=== PATIENT | female | born 1990 | race Caucasian/White ===

== ENCOUNTER 2016-08-24 10:52 | Inpatient (IN) | payer OTHER ==
[~2016-08-24] VITALS: Ht 177.8 cm; Wt 105.8 kg
--- NOTE | ~2016-08-24 | RESCARESUM ---
"PATIENT: EDMUND MOLNIA | | [facility] UNIT #: [id number] | [address] AGE/SEX: 26 F : 89 | [address] | [place] [phone] ADMIT/REG DATE: 08/24/16 | ROOM: [facility] LOC: ADTC | ADTC | Summary of Residential Care Primary Counselor: Katie BAER Date of Admission: 08/24/16 Date of Discharge: 09/16/16 Referral Source: [facility] Primary Care Provider Prior to Admission: Self Admitting Diagnosis: 304.40 Stimulant Use Disorder, Severe; 303.90 Alcohol Use Disorder, Severe; 304.30 Cannabis Use Disorder, Severe; 305.10 Tobacco Dependence; Bi-Polar disorder; Exogenous obesity; Dental caries, Increased risk for HIV and Hep C, PER ' H & P. Discharge Diagnosis: Same Goals Achieved: Edmund was able to identify negative consequences of her addiction, by completing the How to Get Started and Step 1 packets. She also wrote and processed feelings letters to family members and worked on grief from a past relationship. She worked on getting to know herself, to raise her self-worth and to gain insight to the disease concept. She was given Relapse Prevention, but was discharged prior to completing. Continued Obstacles to Sobriety/Relapse Issues: Self-will run riot, not following rules and regulations, not dealing with feelings, thinking the rules don't apply to her, not finishing her treatment, not going to sober living, not getting a sponsor, not going to AA/NA meetings, and not learning how to work a strong program of recovery. Family Issues Addressed: She wrote and processed feelings letters to her Mom and Dad, and worked on grief. Her dad has been gone for a few years, so we did process and work thru that. Y Individual Therapy Y Group Therapy Y Educational Series on Substance Abuse Y Parents/Significant Others Attended Family Program N Acute Medical Problems During the Course of Treatment N Transferred to Hospital During the Course of Treatment N Accepting of Substance Abuse Problem Y Non-accepting of Substance Abuse Problem N Required Psychological or Psychiatric Consultation During the Course of Treatment Completed AA Step # 1 During This Level of Care Significant Incidences During Treatment: Edmund had been placed on a contract for writing notes to a male peer, and she was not to hang around him. She did listen until her last couple days, when she was observed walking with him and sitting with him. She also had been found in bed several times, missed programming, was found sleeping in one of the group rooms, so heard if she is unable to stay up and follow all programming, she would have to PATIENT: EDMUND MOLINA | | [facility] UNIT #: [id number] | [address] [place] [address] AGE/SEX: 26 F : [birth year] | [address] | [place] [address] ADMIT/REG DATE: 08/24/16 | ROOM: [facility] LOC: ADTC | [facility] | Summary of Residential Care discharge and return when she's able to stay awake. Her visiting and phone privileges were taken from her but when she was found missing morning programming and sleeping, she heard she needs to leave. Reason For Discharge: N Completed Residential TX Goals and Ready For Next Level of Care NN Left Tx Against Medical Advice/Treatment Goals Not Complete N Completed Residential Tx Goals But Refusing Continuing Care Recommendations Y Discharged Due to Noncompliance/Treatment Goals not Completed N Discharged Earlier Than Planned Due to: Continuing Care Plan/Recommendations: N Intensive Partial Care Y Sponsor N Partial Care Y AA Meetings/NA Meetings N Outpatient Y Co-dependency Services N Therapeutic Community Y [address] House N Mental Health Therapy N Marriage Counseling Y Other Specific Continuing Care Plan: It is recommended that Edmund finish her treatment, follow up with a [facility]dc house or other sober living, get into aftercare and attend 3-5 AA/NA meetings per week, get and call a sponsor on a regular basis and learn how to work a strong program of recovery. PRIMARY COUNSELOR: BUFFY Patricio"
--- NOTE | ~2016-08-24 | TXPLANREV ---
"PATIENT: EDMUND MOLINA | | [facility] UNIT #: [id number] | [address] AGE/SEX: 26 F : 89 | [address] | [place] [phone] ADMIT/REG DATE: 08/24/16 | [facility] | Treatment Plan/Staffing Review Date: 09/14/16 Treatment plan was reviewed and determined appropriate as written: Yes Treatment plan was reviewed and the following changes/addition/deletions are necessary: Client is to continue working on treatment plan assignments. She will begin working on relapse prevention. Discharge plans were reviewed and determined appropriate as previously documented: No Discharge plans were reviewed and determined to be as follows: Client has to turn herself into senior living on 10/01, for 30 days. Following senior living, she is hoping to get into the [facility]. She did a screening, and hasn't heard if she's accepted and placed on the wait list. She will also be recommended to attend AA/NA meetings, as well as to get and call a sponsor on a regular basis. Other pertinent issues discussed during this staffing review include: None at this time. Staff Present: Skye Shaikh PRIMARY COUNSELOR: BUFFY Patricio Client Signature Counselor Signature Date Time "
--- NOTE | ~2016-08-24 | INDIVTXPLN ---
"PATIENT: EDMUND MOLINA | | [facility] UNIT #: [id number] | [address] AGE/SEX: 26 F : 89 | [address] | [place] [phone] ADMIT/REG DATE: 08/24/16 | ROOM: [facility] LOC: ADTC | ADTC | Individualized Treatment Plan Date: 09/14/16 Problem Statement/Issue Identified: Client needs to identify relapse warning signs and develop a plan to deal with them as they arise. Goal: Client will learn to identify relapse triggers and make a plan of how to avoid them. Objectives/Activities to achieve goal: 1. Client is to complete the Relapse Prevention packet and process it with counselor. Due Date:10/01/16 Complete: Incomplete: Client signature Date Counselor signature Date Outcome/Measurement of Progress Towards Goal: Counselor's signature Date "
--- NOTE | ~2016-08-24 | INDIVTXPLN ---
"PATIENT: EDMUND MOLINA | | [facility] UNIT #: [id number] | [address] AGE/SEX: 26 F : 89 | [address] | [place] [phone] ADMIT/REG DATE: 08/24/16 | ROOM: [facility] LOC: ADTC | ADTC | Individualized Treatment Plan Date: 08/31/16 Problem Statement/Issue Identified: Client has learned to deny or stuff feelings, including grief; needs to learn to identify and process feelings in a clean/sober manner. Goal: Client will learn how to identify and express feelings, including grief, in a healthy, clean/sober manner. Objectives/Activities to achieve goal: 1. Client is to complete the Grief packet on her exboyfriend, and process it with counselor. Due Date:09/06/16 Complete: Incomplete: 2. Client is to write her mother a feelings letter, and process it with counselor and in family group, if able. Due Date:09/06/16 Complete: Incomplete: 3. Client is to complete the Grief packet on her father, which includes writing him a goodbye letter, and process it with counselor. Due Date:09/06/16 Complete: Incomplete: Client signature Date Counselor signature Date Outcome/Measurement of Progress Towards Goal: Counselor's signature Date "
--- NOTE | ~2016-08-24 | TXPLANREV ---
"PATIENT: EDMUND MOLINA | | [facility] UNIT #: [id number] | [address] AGE/SEX: 26 F : 89 | [address] | [place] [phone] ADMIT/REG DATE: 08/24/16 | [facility] | Treatment Plan/Staffing Review Date: 09/07/16 Treatment plan was reviewed and determined appropriate as written: Yes Treatment plan was reviewed and the following changes/addition/deletions are necessary: Client is to continue working on treatment plan assignments. She is finishing up with feelings letters and self-esteem and will begin working on love addiction. Discharge plans were reviewed and determined appropriate as previously documented: Yes Discharge plans were reviewed and determined to be as follows: Client has to turn herself into halfway on 10/01, and when she serves her 30 day sentence, hopes to be able to get into the [facility]. We will do paperwork and set up screening prior to her discharge. She will also be recommended to attend AA/NA meetings, as well as to get and call a sponsor on a regular basis, and attend an aftercare program. Other pertinent issues discussed during this staffing review include: None at this time. Staff Present: Skye Shaikh PRIMARY COUNSELOR: BUFFY Patricio Client Signature Counselor Signature Date Time "
--- NOTE | ~2016-08-24 | INDIVTXPLN ---
"PATIENT: EDMUND MOLINA | | [facility] UNIT #: [id number] | [address] AGE/SEX: 26 F : 89 | [address] | [place] [phone] ADMIT/REG DATE: 08/24/16 | ROOM: [facility] LOC: ADTC | ADTC | Individualized Treatment Plan Date: 08/31/16 Problem Statement/Issue Identified: Client continues to use alcohol &/or drugs despite ongoing negative consequences, and she did not know anyone to reach out to, so instead, she continued to drink and use. Goal: Client will learn how to identify negative consequences of her addiction, attend AA/NA meetings and meet women in recovery. Objectives/Activities to achieve goal: 1. Client is to complete the How to Get Started packet, process it with counselor and selected pages in group. Due Date:09/01/16 Complete: Incomplete: 2. Client is to complete Step 1, process it with counselor and selected pages in group. Due Date:09/04/16 Complete: Incomplete: 3. Client is to attend AA/NA meetings, ask for and get at least 5 names and numbers of women in recovery and share that list with counselor. Due Date:Ongoing Complete: Incomplete: Client signature Date Counselor signature Date Outcome/Measurement of Progress Towards Goal: Counselor's signature Date "
--- NOTE | ~2016-08-24 | INDIVTXPLN ---
"PATIENT: EDMUND MOLINA | | [facility] UNIT #: [id number] | [address] AGE/SEX: 26 F : 89 | [address] | [place] [phone] ADMIT/REG DATE: 08/24/16 | [facility] | Individualized Treatment Plan Date: 08/31/16 Problem Statement/Issue Identified: Client needs to identify ways to improve self esteem to help maintain manager long term care sobriety from all mood altering substances. Goal: Client will get to know herself better, which will, in turn, help raise her self-worth. Objectives/Activities to achieve goal: 1. Client is to complete the About Me, Finish the Sentences, and I'm Worthwhile, because.... papers and process them with counselor. Due Date:09/08/16 Complete: Incomplete: 2. Client is to complete the Self-Esteem packet and process it with counselor. Due Date:09/08/16 Complete: Incomplete: 3. Client is to complete 1 page a day in the Quiet Moments packet, and process them with counselor. Due Date: Ongoing Complete: Incomplete: Client signature Date Counselor signature Date Outcome/Measurement of Progress Towards Goal: Counselor's signature Date "
--- NOTE | ~2016-08-24 | CLPRLASSUM ---
PATIENT: EDMUND MOLINA | | [facility] UNIT #: [id number] | [address] AGE/SEX: 26 F : 89 | [address] | [place] [phone] ADMIT/REG DATE: 08/24/16 | ROOM: [facility] LOC: ADTC | ADTC | Client Problem List/Assessment Summary Date: 08/31/16 Problems identified by the client: Client advised she is here on her own, however, she also has legal issues she's dealing with. Problems identified by significant others: Same Client's Strengths: Client was unable to recognize any strengths. Problem List: Code: T Client continues to use alcohol &/or drugs despite ongoing negative consequences. Code: T Client does not "reach-out to others for help" and instead resumes using alcohol &/or drugs. Code: T Client has learned to deny or stuff feelings, including grief; needs to learn to identify and process feelings with safe people to acquire the necessary skills to maintain check weigher sobriety. Code: T Client needs to identify ways to improve self esteem to help maintain alf sobriety from all mood altering substances. Code: T Client needs to identify relapse warning signs and develop a plan to deal with them as they arise. Code Roth: T: to be addressed during course of treatment O: problem noted, expected to resolve itself with abstinence--specific tx plan not required R: problem noted, will be referred upon discharge PRIMARY COUNSELOR: BUFFY Patricio
--- NOTE | 2016-08-24 15:38 | NUR ---
Tech Note: Client attended programming on Relapse Prevention and is working on her Getting Started.
--- NOTE | 2016-08-24 16:28 | NUR ---
Relapse Prevention, 07/12 ration, 1.0 hours, Client attended and participated in relapse prevention education which focused on relapse triggers/issues.
--- NOTE | 2016-08-24 22:22 | NUR ---
TECH NOTE: Client attended Alumni meeting and on-site AA meeting. Checked into room by tech and lab came back negative for amphetamines. Was not seen by
--- NOTE | 2016-08-24 22:55 | NUR ---
EDUCATION NOTE: 1HR lecture on Shame given by counselor
--- NOTE | 2016-08-25 04:43 | NUR ---
Bed note: Client was in bed with eyes closed and no distress at all bed checks.
--- NOTE | 2016-08-25 06:31 | NUR ---
ADMISSION NOTE Rights/Responsibilities: Copy given and explained to client. Signed and accepted by client. Client oriented to physical lay out of the ADTC unit, given Big Book and admission packet. A David was assigned. Fawn Client is a 26yr old single female. Brought to tx by [facility] staff where she has been for the past 16 days. Client is homeless. DOC Meth, alcohol, and cannabis. Last used 08/09/16. No allergies, No meds. No family participation in tx. Was searched no contraband. Initial paperwork given and guidelines gone over. Doctor was notified.
--- NOTE | 2016-08-25 08:30 | NUR ---
INITIAL SESSION 1 HR: Clt was oriented to tx plans, schedules and what to expect from tx. She advised she is here on a eh, and when she's done w/ tx, she has to return to skilled nursing in [facility]. She stated her check in date is 09/30, so she'll have a couple days when she's done w/ tx. She was asked if she has any questions and the only one she has is when she can have her anxiety meds back. She heard we like to work on natural ways to reduce anxiety. She stated she can only get calm when she's taking her meds. She heard we will speak to the dr. She is to begin working on initial paperwork.
--- NOTE | 2016-08-25 10:08 | NUR ---
Tech note: Client is working on Getting started and mtg with gaurav.
--- NOTE | 2016-08-25 12:13 | NUR ---
AM GROUP .5 HR: Peers ORIENTED THIS NEW CLIENT TO GROUP GUIDELINES, GOALS AND OBJECTIVES. Client identified drug of choice as meth. She stated that this is her first treatment and that she is from [place]. She related to others who thought others didn't recognize their drug use, but now she realizes that they knew more than she thought. Several clients had assignments to process. This generated a lot of feedback and different individuals sharing from their own experience. Various examples of behaviors and values compromised were addressed with much of the focus on values compromised, how kids become the innocent victims of this disease and how painful but necessary it is to have to look at the reality of those consequences. Client was otherwise attentive.
--- NOTE | 2016-08-25 12:46 | NUR ---
Education note: Client attended speaker Scott Naidu
--- NOTE | 2016-08-25 16:16 | NUR ---
SPIRITUAL EDUCATION 1 HR. Topic today was on how addiction is a disease of body mind and spirit and how the Steps fit in treating the SPIRIT. We also talked about ways to spirituality, payoffs, and how spirituality is related to both addiction and recovery.
--- NOTE | 2016-08-25 18:17 | NUR ---
Education: 1 Hour. Client attended "Boundaries" lecture presented by staff.
--- NOTE | 2016-08-25 22:17 | NUR ---
Tech note : Client played pictionary for rec and attended an onsite NA meeting. SE: Rec.
--- NOTE | 2016-08-26 05:19 | NUR ---
tech note: client was motionless in no distress at all bed checks.
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
--- NOTE | 2016-08-26 09:58 | NUR ---
FAMILY CONTACT: Clt's mom was called and informed of visiting hours, family education and the program. She did not have any questions or concerns at this time.
--- NOTE | 2016-08-26 11:30 | NUR ---
AM GRP 1.5 HRS, Ratio 1:11/ Clt sat mostly quiet, until prompted, then stated she is just feeling sad and not sure what to think about things. SHe misses a man she considered the love of her life, as he had a severe accident resulting in TBI. She heard she can do the grief pkt on him and see if that helps.
--- NOTE | 2016-08-26 15:51 | NUR ---
Tech Note: Client participated in Spiritual Enrichment in the morning and went for an outdoor walk in the afternoon. Client stated that she is working on Step One.
--- NOTE | 2016-08-26 16:00 | NUR ---
step education/1 hr/ Focus was on step 6 and looking at character defects. Each person shared some questions and answers and identified what character defects they are ready to let go of and what ones they are not willing to let go of. This client participated.
--- NOTE | 2016-08-26 16:34 | NUR ---
Education 1 Hour: Client heard a presentaion on "Wellness in Recovery."
--- NOTE | 2016-08-26 23:07 | NUR ---
Tech note: Client worked on craft projects for the [employer] for rec and attended AA meeting SE:rec
--- NOTE | 2016-08-27 00:11 | NUR ---
Education note: Clients watched a movie on "my attitude' by Scooter Avila.
--- NOTE | 2016-08-27 04:54 | NUR ---
Bed note; client was motionlees, with eyes closed at all bed checks.
--- NOTE | 2016-08-27 12:16 | NUR ---
Group 1.5 Hr Ratio 1:12/Topics today were a change plan, resentment packet and a getting started. One new peer was orientated to group rules and goals. Client shared she is just listeniing as she was not sharing in group.
--- NOTE | 2016-08-27 14:03 | NUR ---
PEER REVIEWS 1.25 HRS: Clt participated in peer reviews and took a risk to give open and honest feedback to those receiving a review.
--- NOTE | 2016-08-27 16:27 | NUR ---
Tech Note: Client went with group for outside walk and watched "Marijuana", by John Avila, for education. Clt is working on a Grief packet.
--- NOTE | 2016-08-27 23:49 | NUR ---
Tech Note: Client read guidelines with peers. She watched tv. SE: All Day
--- NOTE | 2016-08-28 05:32 | NUR ---
Bed Note: Client was motionless with eyes closed at all bed checks. Client did however wake up around 0410 and go out to smoke. She was redirected to go back to room and did so with no issues.
--- NOTE | 2016-08-28 15:46 | NUR ---
Tech Note: Client working on a Grieving packet. Client was found in her room sleeping at 0950 hours.
--- NOTE | 2016-08-28 20:32 | NUR ---
Tech Note: Client played a game for rec. They also attended the A.A.Meeting at [facility] and [place]. SE: Client missed the client meeting because she was doing her laundry. She did not realize the client meeting was so early on Saturdays. This is her first weekend in treatment.
--- NOTE | 2016-08-29 05:31 | NUR ---
Bed Note: Client was motionless with eyes closed at all bed checks.
--- NOTE | 2016-08-29 15:31 | NUR ---
Tech Note: Client participated in Big Book Study. Client stated that she is working on, "Grief."
--- NOTE | 2016-08-29 23:34 | NUR ---
Client attended [facility] and helped with community clean. SE: [facility]
--- NOTE | 2016-08-30 05:03 | NUR ---
Bed Note: Client was motionless with eyes closed at all bed checks.
--- NOTE | 2016-08-30 10:11 | NUR ---
Tech note: Client is working on Grief pkt. and missed morning meditation.
--- NOTE | 2016-08-30 10:11 | NUR ---
Client missed morning meditation due to over sleeping.
--- NOTE | 2016-08-30 11:30 | NUR ---
AM GRP 1.5 HRS, Ratio 1:11/ Clt sat mostly quiet thru out grp, and had very little to add to it.
--- NOTE | 2016-08-30 14:37 | NUR ---
Education note: Client attended speaker for education Carroll Raymond
--- NOTE | 2016-08-30 14:55 | NUR ---
IS 1 HR: Clt stated she has several things she needs help with. 1. She continues to have night terrors and doesn't always remember them, but finds her pillows and blankets all in disarray when she wakes up. She is also waking up feeling very tired and groggy, stating she's taking melatonin 3 times a day, so wants to stop taking it for now. She heard she can refuse it. She then stated she is on seroquil, but it does help her get to sleep at night, so heard to fill out a self-care sheet and will staff it with the dr in the morning.
--- NOTE | 2016-08-30 16:00 | NUR ---
RECOVERY 101 1 HR/ Clients all filled out list of 30 consequences from their use to help look at how each addictive chemical they ever used has caused problems and how minimizing can sabotage treatment. Discussed this and also learned about phases of recovery process from Denial to Acceptance & Surrender.
--- NOTE | 2016-08-30 22:42 | NUR ---
TECH NOTE: Client played Catch Phrase in REC, and attended NA meeting. Late to Client meeting SE: REC
--- NOTE | 2016-08-30 23:58 | NUR ---
Education: 1 Hour. Client attended "Adult Children" presentation given by staff.
--- NOTE | 2016-08-31 05:24 | NUR ---
BED NOTE: Client was in bed, motionless with eyes closed all three bed checks.
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
--- NOTE | 2016-08-31 16:28 | NUR ---
Relapse Prevention; 1.0 hours; Client attended and actively participated in relapse prevention which focused on compulsive behaviors and relapse.
--- NOTE | 2016-08-31 16:31 | NUR ---
Tech Note: Client attended speaker meeting, presented by [employer], and Relapse Prevention education. Client is currently working on Feelings Letters.
--- NOTE | 2016-08-31 23:24 | NUR ---
Education note: 1 hour lecture given by counselor on "Self Esteem"
--- NOTE | 2016-08-31 23:37 | NUR ---
Tech note: Client worked on projects for the [employer] for rec and attended AA meeting SEF:
--- NOTE | 2016-09-01 04:13 | NUR ---
BED NOTE: Client was in bed, motionless with eyes closed all three bed checks.
--- NOTE | 2016-09-01 10:55 | NUR ---
Tech note: Client is working on Fl's
--- NOTE | 2016-09-01 12:14 | NUR ---
AM GROUP 9:1/1.5 HR: Client and peers participated as three peers processed issues and assignments. Much of the focus became how to rebuild a healthy and realistic value system after compromised original values to such a degree in active addiction. This client was redirected for nodding off. She did get up and stood behind her chair for a brief period continued to struggle to stay awake. She offered no feedback or personal sharing.
--- NOTE | 2016-09-01 13:15 | NUR ---
Education note: Client attended speaker Everardo for education today.
--- NOTE | 2016-09-01 15:00 | NUR ---
IS 1 HR: Clcourtney was confronted on the notes she has been giving to a male peer. They were found by this counselor and a tech. She denied it at first, stating they were written when they were in detox, but heard they have dates on them, so that's not true. We discussed how important it is to NOT start a relationship, how she has nothing to offer, nor does anyone in tx at this time, and she is also being placed on a contract. We discussed that her actions will determine whether or not she will stay in tx.
--- NOTE | 2016-09-01 18:15 | NUR ---
tech note: client c/o level 7 headache,motrin 400 mg given.
--- NOTE | 2016-09-01 19:56 | NUR ---
SPIRITUaL EDUCATION 1 HR. Today we discussed difference between spirituality and taoist, and then played a spiritual challenge game where group discussed thought provoking questions on spirituality and the meaning.
--- NOTE | 2016-09-01 22:42 | NUR ---
EDUCATION NOTE: 1 HR Counselor gave a lecture on Disease Concept
--- NOTE | 2016-09-01 23:55 | NUR ---
tech note: client played Pictionary for recreation & attended onsite NA mtg. Female peer complained that this client is behaving in inappropriate ways. SE: NA meeting.
--- NOTE | 2016-09-02 04:13 | NUR ---
BED NOTE: Client was in bed, motionless with eyes closed all three bed checks.
--- NOTE | 2016-09-02 05:14 | NUR ---
MED NOTE: Client c/o upper respiratory pain. 9 out of 10 pain level @ 513 am. IBP 400, Mucinex and cough drop given
--- NOTE | 2016-09-02 15:37 | NUR ---
Tech Note: Client remained in her room, stating that she was sick. Client's temperature was 97.6 F at 1300. Client reported that her nasal discharge was orangish yellow.
--- NOTE | 2016-09-02 22:40 | NUR ---
TECH NOTE: Client was in room all evening. Checked on multiple times by techs
--- NOTE | 2016-09-03 04:40 | NUR ---
Bed note: client was in bed moitionless with eyes closed and no distress at all bed checks.
--- NOTE | 2016-09-03 15:49 | NUR ---
PEER REVIEWS 1.25 HRS: Clt participated in peer reviews and took a risk to give open and honest feedback to those receiving a review.
--- NOTE | 2016-09-03 16:14 | NUR ---
Tech Note: Client watched video (The [employer]). She spent morning in her room still claiming to be sick. At 1040 hours, client came out of room and resumed her programming.
--- NOTE | 2016-09-03 22:23 | NUR ---
Tech Note : Client worked crafts and projects for the dance. Client watched TV. Client attended an offsite AA meeting.
--- NOTE | 2016-09-04 04:38 | NUR ---
Bed note: Client was in bed with eyes closed and no distress at all bed checks.
--- NOTE | 2016-09-04 17:56 | NUR ---
Tech Note: Client attended N.A. Panel and is working on FL's
--- NOTE | 2016-09-04 19:11 | NUR ---
tech note: client attended offsite Alumni Dance.
--- NOTE | 2016-09-04 22:48 | NUR ---
tech note: client c/o level 7 headache @ 3861,motrin 400 mg was given.
--- NOTE | 2016-09-05 04:54 | NUR ---
BED NOTE: Client was in bed, motionless with eyes closed all three bed checks.
--- NOTE | 2016-09-05 12:06 | NUR ---
Saul note: Client was found laying down for the third time Tuesday at 11:55. She stated to saul she didn't want to go to lunch, she was tired and didn't feel good again. Saul informed her it was part of programing and she needed to go to lunch with the group. It's been every morning for at least four days that she has been going back to bed and claiming she doesn't feel good. Has been checked and running no fever.
--- NOTE | 2016-09-05 16:57 | NUR ---
Tech Note: Client participated in Big Book Study. Client stated that she is working on reading the Big Book. Client received visitors.
--- NOTE | 2016-09-05 17:18 | NUR ---
Tech Note: Client came to tech station c/o a female peer who was, " giving me a lot of mouth about me being a thief." On-call counselor was contacted.
--- NOTE | 2016-09-05 23:28 | NUR ---
tech note: Client attended AA Panel & participated in Community Clean. Client talked on the phone. Client was redirected by tech for not having shoes on-she was wearing socks only. Tech did find client a pair of flip flops to wear while she was washing her shoes. SE: AA Panel.
--- NOTE | 2016-09-06 04:24 | NUR ---
bed note: client was in bed with eyes closed and no distress at all bed checks.
--- NOTE | 2016-09-06 10:44 | NUR ---
Tech notes: Client is working on Self Esteem
--- NOTE | 2016-09-06 12:00 | NUR ---
Peer Review 1.5 hr/ Clients all participated in giving peer review to 4 peers on what they need to work on.
--- NOTE | 2016-09-06 12:55 | NUR ---
Education note: Client attended educational callum Rosas on Marijuana.
--- NOTE | 2016-09-06 16:43 | NUR ---
Recovery 101 1 hr/ Clients discussed fundamental tools and what is important to work a strong recovery program such as: 12 steps, getting and using a sponsor, meetings/home group, read C.A.L., H.O.W./being honest, service work, HP concepts/spirituality, opening up, slogans, serenity prayer, etc. Also discussed the balance, recovery as way of life, 85% is the living problem and why people still go to meetings for their lifetime.
--- NOTE | 2016-09-06 18:30 | NUR ---
med note: client complained of headache pain level 7. motrin given
--- NOTE | 2016-09-06 23:46 | NUR ---
Tech Note: Client attended N.A.Meeting. Client also went on walk for rec. SE:30 day chip in N.A.
--- NOTE | 2016-09-06 23:59 | NUR ---
Education Note: 1 hour lecture on communication given by counselor.
--- NOTE | 2016-09-07 04:13 | NUR ---
Bed Note: client was in bed with eyes closed and no distress at all bed checks.
--- NOTE | 2016-09-07 09:56 | NUR ---
IS 1 HR: Sil shared her self esteem work, and still struggles with loving herself, but does want to learn. She also shared feelings letters and we discussed her doing even more work on herself, instead of worrying about getting into a relationship. Sil asked if a anahy can come visit, so we discussed how she has jumped from man to man, and that she has nothing to offer, until she forgives herself and finds herself. She is to write herself a letter, as well as to read the addicted love series.
--- NOTE | 2016-09-07 11:30 | NUR ---
GROUP 1.5 HRS. 1:10 Client participated in orienting new peer to purpose and rules of group. New peer shared feelings of fear and hopelessness which lead to group discussion on learning to deal with feelings approrpriately. Group read pg. 62 of ALCOHOLICS ANONYMOUS and addressed issues of self-centeredness and being driven by ..."fear, self-delusion, self-seeking and self-pity". This client sat quiet until prompted. She stated she does not have kids so did not relate to peers who are parents and shared effects on kids. Client was asked about her parents and reports both are/were alcoholic so was encouraged to share how that effected her and how she now has the same disease with different substance.
--- NOTE | 2016-09-07 17:02 | NUR ---
Relapse Prevention, 07/08, 1.0 hours, Client attended and actively participated in relapse prevention which focused on completing the quiz What Do You Know About Relapse?
--- NOTE | 2016-09-07 17:40 | NUR ---
ech Note: Client is working on self esteem pkt.
--- NOTE | 2016-09-07 23:20 | NUR ---
Tech Note: Client took walk around park for rec. Client attended A.A.Meeting. was late to client mtg SE: 30 day chip for A.A.
--- NOTE | 2016-09-07 23:26 | NUR ---
Education Note: Client attended a one hour session with [facility] on HIV/AIDS/STD's for education.
--- NOTE | 2016-09-08 04:50 | NUR ---
Bed Note: client was in bed with eyes closed and no distress at all bed checks.
--- NOTE | 2016-09-08 10:32 | NUR ---
Tech notes: Client is working on Letter to delf, Addiction to love.
--- NOTE | 2016-09-08 12:56 | NUR ---
Group 1.5 hrs 1:10 Client participated in orientating a new peer on the purpose of group and guidelines. Student: Anahy Charles
--- NOTE | 2016-09-08 15:30 | NUR ---
SPIRITUAL EDUCATION 1 hr. Today we oriented newcomers, discussed Starfish story then reached out to newcomers writing letters of encouragment and welcome, and using word art to make Big Book Bookmarks as welcoming gift.
--- NOTE | 2016-09-08 19:13 | NUR ---
Education: 1 Hour. Client attended Step 2 & Step 3 lecture given by staff.
--- NOTE | 2016-09-08 23:36 | NUR ---
Tech note : Client went for a walk around the park for rec and attended an onsite NA meeting. SE: NA meeting
--- NOTE | 2016-09-09 05:16 | NUR ---
tech note: client was motionless in no distress at all bed checks.
--- NOTE | 2016-09-09 11:43 | NUR ---
Group 1.5 Hr Ratio 1:11/Topics were a feelings letter which lead to difficult dads. Client shared nothing in group and appeared to be cvery disinterested and had to be told one time to stop playing with the trash can.
--- NOTE | 2016-09-09 13:56 | NUR ---
Tech Note: Client participated in Spiritual Enrichment in the morning and went for an outdoor walk in the afternoon. Client stated that she is working on,"Addiction to Love." Client missed morning meditation, stating that she had not been awakened. Tech did wake her at early wake up, client did make a verbal response to the wake up.
--- NOTE | 2016-09-09 14:18 | NUR ---
Education 1 Hour: Client heard a lecture and saw a demonstration on "Infection Prevention."
--- NOTE | 2016-09-09 17:00 | NUR ---
FAMILY EDUCATION 3 HRS. Client was accompanied by her mom. They took part in the discussion on the disease concept. Mom was appreciative of the information about addiction.
--- NOTE | 2016-09-09 17:30 | NUR ---
IS 1 HR: Sil shared several papers she'd written from what she learned about loving herself. SHe did affirmations, she did positive thoughts, she wrote a letter of encouragement, she did a good job of idenitfying she has tried to fill the God sized hole in her with men, drugs and alcohol.
--- NOTE | 2016-09-09 23:14 | NUR ---
Tech note:client took walk for rec, participated in guided meditation and attended AA mtg. SE:CHAITANYA
--- NOTE | 2016-09-10 04:55 | NUR ---
Bed Note: Client was motionless with eyes closed at all bed checks.
--- NOTE | 2016-09-10 12:36 | NUR ---
Group 1.5 Hr Ratio 1:12/Topics today were orientating a new member to group, a step one and what some peers are here for. Client shared how she does care about getting sober after she was confronted for being disinterested in group. Client opened up about her BF laying in bed not knowing anything and his family having a restraining order against her to keep her away from him. Client looked a lot more relaxed after opening up and sharing.
--- NOTE | 2016-09-10 12:41 | NUR ---
Peer Review 1.5 hr/ Clients all participated in giving peer review to 4 peers on what they need to work on.
--- NOTE | 2016-09-10 13:52 | NUR ---
Tech Note: Client watched Predator Pt.2 video and is working on Quiet Time and Relationships packets and her Change Plan.
--- NOTE | 2016-09-10 23:53 | NUR ---
TECH NOTE: Client participated in reading guidelines, attended optional offsite AA meeting, and watched tv/movies SE: phone
--- NOTE | 2016-09-11 04:09 | NUR ---
BED NOTE: Client was in bed, motionless, with eyes closed all bed checks.
--- NOTE | 2016-09-11 16:10 | NUR ---
Tech Note: Client attended an off-site AA meeting in the morning. Client stated that she is working on, "My Change Plan."
--- NOTE | 2016-09-11 19:50 | NUR ---
TECH NOTE: Client played [employer] for REC, attended offsite AA meeting and watched tv/movies. SE: AA
--- NOTE | 2016-09-12 04:14 | NUR ---
Bed Note: Clt lay motionless in bed with eyes closed showing no distress at all bed checks.
--- NOTE | 2016-09-12 16:20 | NUR ---
Tech Note: Client read chapter 4 for Big Book study. Clt is working on a Change Plan and went to faith service. Clt had a visit.
--- NOTE | 2016-09-12 22:30 | NUR ---
Tech Note : Client listened to an AA panel member share his experience, strength and hope, watched tv and participated in community clean. She had a phone interview with a [facility] recovery house and attended an onsite [employer] meeting.
--- NOTE | 2016-09-13 04:51 | NUR ---
Bed Note: Clt lay motionless in bed with eyes closed showing no distress at first two bed checks. The third bed check clt rolled over in bed.
--- NOTE | 2016-09-13 09:03 | HP ---
ADMIT: 08/24/2016 RM/LOC: [facility] MR#: [id number] [address] [address] [place], [place] [id number] EDMUND MOLINA [address] [place] [address] History and Physical SEX: F AGE: 26 : 1990 DATE OF SERVICE: CHIEF COMPLAINT: Chemical dependency. HISTORY OF PRESENT ILLNESS: Edmund is a 26-year-old, single, white female, admitted to residential level treatment from [facility] after detox on August 09 through August 24. She states she had been on probation with [facility] with numerous charges and continued to drink and use and checked herself into treatment. She states it was not a real probation. She had numerous prior legal charges including disturbing the peace, probation violation, possession of legend drug, assault, theft, possession of marijuana, and possession of paraphernalia. She states she just wanted to get clean, straight, and sober and checked herself into treatment. Edmund's drug of choice on admission is methamphetamines. She first started using meth at 20 years of age with friends when she started smoking it. She states she did it daily as much as she could get a hold of. Usually about 0.25 g a day. By 07/13, she was using IV on a daily basis. She states she used multiple times a day. Her brother was a dealer and got the drugs for her. She has smoked and shot "as much as I could." She states the last year she has multiple times a day IV. She admits to stealing, selling, and trading for drugs. Her last use on August 09 prior to going to [facility]. Second drug of choice is alcohol. She first started drinking 13 years of age with friends. In [place], she drank 1 to 2 times a month. High school, she dropped out of school and went to the [employer]. By , she was drinking 6 to 12 beers every night. She states she drank that way off and on. The heaviest drinking was the last 2 years. She states she would drink 12 to 24 beers daily plus shots and up to a liter of hard liquor. She admits to intoxication, but denies DUIs, MIPs, alcohol withdrawal seizures, or DTs. Her last drink was August 09 when she had a 6 pack. Third drug of choice was cannabis. She first started smoking pot at around 15 years of age. Initially, smoked it about once a week. Her heaviest use was 17 to 20 when she smoked 0.25 ounce a day or more. She states the last couple years she only smokes pot 1 to 2 times a month. Her last use was August 09. She denies doing cocaine, mushrooms, LSD, or other illicit drugs. PAST MEDICAL HISTORY: OPERATIONS: None. ILLNESSES: Include a history of reactive airway disease or asthma off and on as well as a history of bipolar disorder treated in the past with Seroquel and Zoloft, and she states that was a good combination. Without those medications, her anxiety she states is severe. FAMILY HISTORY: Remarkable for a brother, who is a meth addict and was a dealer. She denies any other drug or alcohol use by family members. No family history of heart attack, strokes, or cancers. ADMIT: 08/24/2016 RM/LOC: [facility] MR#: [id number] [address] [place] [id number] [facility]EF[address] [place] [address] History and Physical SEX: F AGE: 26 : 1990 SOCIAL HISTORY: Is that of a 26-year-old, single, white female. She has no children. Her last job was working at the [employer] in 2016. She has lived in [place] for the last 5 or 6, years prior to that was raised in [place]. REVIEW OF SYSTEMS: Remarkable for chronic depression and anxiety with her bipolar along with history of some childhood asthma. PHYSICAL EXAMINATION: VITAL SIGNS: She is 5 feet 10 inches with a weight of 105.8 kg, blood pressure 122/76 with pulse 81, and temp 96.9. GENERAL APPEARANCE: Is that of a 26-year-old, white female, who is alert, oriented, appears much older than stated age. HEENT: Most of her teeth are rotted off at the base. Pupils reactive. Extraocular muscles are intact. TMs are normal. Throat is unremarkable other than her severe dental caries. NECK: Without nodes or masses. HEART: Regular without murmur. LUNGS: Clear. ABDOMEN: Obese, soft, nontender, benign. BREASTS: Deferred. GENITOURINARY: Deferred. RECTAL: Deferred. EXTREMITIES: No clubbing, cyanosis, edema, tracks, or splinter hemorrhages. NEUROLOGIC: Grossly normal including light touch, strength, and DTRs. ASSESSMENT AND PLAN: 1. Stimulant use disorder, severe with history of IV use. 2. Alcohol use disorder, severe. 3. Cannabis use disorder, severe. 4. Tobacco use disorder. ADMIT: 08/24/2016 RM/LOC: [facility] MR#: [id number] [address] [place] [id number] [place] [address] History and Physical SEX: F AGE: 26 : 1990 5. Bipolar disorder. 6. Exogenous obesity. 7. Dental caries. 8. Increased risk for human immunodeficiency virus and hepatitis C with recent negative labs including CBC, chemistry panel, and UA at [facility]. PLAN: HIV and hepatitis C are to be obtained, placed her on a multivitamin and thiamine. We will proceed with drug and alcohol abuse dependency treatment and counseling and further evaluation and management based on course during hospitalization. We will continue with her Zoloft 50 mg daily and Seroquel 100 mg daily. Please see her hospital record for the details. Carlos Manuel Nobles MD/ dolly JOB #: [id number] CC: Carlos Manuel Nobles, Attending Physician NO FAMILY PHYSICIAN, Family Physician
--- NOTE | 2016-09-13 10:24 | NUR ---
Tech notes: Client is working on Relationships
--- NOTE | 2016-09-13 13:34 | NUR ---
Educational Note: Client watched a video "Inhalent Abuse"
--- NOTE | 2016-09-13 18:22 | NUR ---
EDUCATION NOTE: 1HR Lecture on Feelings given by counselor.
--- NOTE | 2016-09-13 21:00 | NUR ---
FAMILY EDUCATION 3 HRS., GROUP 2 HRS. 2:7 Client was accompanied by male friend for education only. They took part in the discussion on the family roles, codependency and detachment. Friend identified that he is in recovery and also has codependency issues. Client attended group alone and did not participate.
--- NOTE | 2016-09-13 22:59 | NUR ---
tech note: family SE: family
--- NOTE | 2016-09-14 04:42 | NUR ---
bed note:client was in bed with eyes closed and no distress at all bed checks.
--- NOTE | 2016-09-14 10:00 | NUR ---
FAMILY PHONE SESSION 1 HR: Sil's Mother was unable to come for a family session, as she has no money or a car, so agreed to do a phone session. She was able to voice concerns to her daughter about issues she's had w/ men and she was also able to read her feelings letter to her. it was well written and made perfect sense. Sil plans to go home to Mom's while she waits to go turn herself into group home. She screened w/ the [facility], and will learn if she will be placed on their waiting list so when she gets out of group home, she can go to to the house. She has completed all written pkts and assignments, so was given the relapse prevention pkt.
--- NOTE | 2016-09-14 14:39 | NUR ---
Tech Note: Client participated in light stretching in the morning and went for an outdoor walk in the afternoon. Client stated that she is working on reading the Big Book.
--- NOTE | 2016-09-14 14:47 | NUR ---
Education 0.5 Hour: Client watched the video, "How to Sabotage Your Treatment."
--- NOTE | 2016-09-14 19:00 | NUR ---
Education: 1 Hour. Staff gave lecture on Step 1.
--- NOTE | 2016-09-14 23:55 | NUR ---
tech note: client played Pictionary for recreation,attended Guided Meditation & onsite AA meeting. Client was redirected for wearing a top that was low cut. SE:Group.
--- NOTE | 2016-09-15 04:47 | NUR ---
tech note: Client was motionless in no distress at all bed checks.
--- NOTE | 2016-09-15 10:13 | NUR ---
Tech note: Client is working on [employer]
--- NOTE | 2016-09-15 11:50 | NUR ---
Group 1.5 Hr Ratio 1:10/Topics were orientatinga new member to group rules and goals, a getting started packet and a vent letter. Group was interupted by a tornado drill. Client shared nothing in group and had to be redirected to pay attention. Client shared after group she knew the person that wasbeing vented and was keeping from saying anything negitive. Client was told she still needs to look like she is paying attention.
--- NOTE | 2016-09-15 12:53 | NUR ---
Client was laying down in her room after lunch today and redirected to get up.
--- NOTE | 2016-09-15 13:00 | NUR ---
Education note: Client attended educational speaker "Kit" on cross addiction.
--- NOTE | 2016-09-15 14:44 | NUR ---
COUNSELOR NOTE: I went into [facility] room to prep for spirituality about 2:40. Client was back in corner with head turned to wall and appeared to be asleep. I said if she was asleep she needed to get up. I returned a few minutes later and it did not appear that she had moved. Said it louder and she turned glared at me and cursed something mumbling. She did get up and stomped out of the room saying she wasn't doing anything wrong and slammed into the community room. I believe that she said she wasn't doing anything wrong and some f words.
--- NOTE | 2016-09-15 16:00 | NUR ---
COUNSELOR NOTE Sil was pulled into office, after hearing from another counselor that sil was sleeping in one of the grp rooms. She denied she was sleeping, and was confronted about other times she's been found in bed and/or asleep. She was also confronted for walking with the anahy she had originally written notes to, and she minimized that, as well. Sil was then told as a consequence for breaking her contract, all visiting and phone privileges will be taken away from her for the weekend, and if she is found sleeping again there's a good chance she will be d/elisha, as it shows she's not taking things seriously and after being here for nearly a month, she hasn't made friends w/ any of the female peers and isn't showing much improvement.
--- NOTE | 2016-09-15 18:22 | NUR ---
SPIRITUAL EDUCATION 1 HR. ORIENTED NEWCOMERS, DISCUSSED ADDICTIVE SELF VS SPIRITUAL SELF THEN DEPICTED IN ARTWORK.
--- NOTE | 2016-09-15 18:24 | NUR ---
Education: 1 Hour. Client attended Relapse Prevention lecture given by staff.
--- NOTE | 2016-09-15 23:49 | NUR ---
Tech note: client played [employer] for recreation & attended onsite NA meeting. Client was sitting next to male peer who there has been an issue with before the client meeting started. Male peer got up and moved away when peers mentioned it to him. SE: NA.
--- NOTE | 2016-09-16 04:26 | NUR ---
Bed Note: Clt lay motionless in bed with eyes closed showing no distress at all bed checks.
--- NOTE | 2016-09-16 11:05 | NUR ---
Tech Note: Client missed morning meditation, having returned to bed after being awakened.
--- NOTE | 2016-09-16 11:48 | NUR ---
Group 1.5 Ratio 1:12/Topics today were orientating a new group member to group rules and goals, a step one and a gs packet. Client shared very little but did a better job paying attention today.
--- NOTE | 2016-09-16 13:00 | NUR ---
FINAL CONTACT: Clt was informed he is being discharged from tx for exactly the same things she had been confronted on for the past 3 days. SHe got up this morning, went outside to smoke at 6:30, then went back to bed and didn't get up for programming. She heard this is like telling up whatever we say doesn't matter or apply to her, so she will need to go figure it out and when she's ready for tx, to call and return to finish. She heard she has showed minimal progress,and has actually retreated in her tx.
--- NOTE | 2016-09-16 13:02 | NUR ---
In community she was confronted about being out of bed by 6:30am smoking in the hut. She was late to chapel because she went back to bed. She stated she wasn't going to stay up and just wait for program.
--- NOTE | 2016-09-16 16:33 | NUR ---
DISCHARGE NOTE Client left treatment, having achieved her maximun benefit at this time. Client packed her bags, in the present of her roommate, and left them temporarily at the tech station while she awaits transportation.
--- NOTE | 2016-09-17 13:38 | NUR ---
Late Note for 09/13/16 due to illness: Group 1.5 hr/ 22:2 Clients all participated in Sculpturing today by role-playing, giving feedback and relating. This client was attentive and all did discuss relapse can happen to anyone, and how to prevent it.
--- NOTE | 2016-09-17 13:47 | NUR ---
Late Note for 09/14/16 due to illness: Relapse Prevention, 07/08, 1.0 hours, Client attended and actively participated in relapse prevention educatio which focused on internal and external triggers.
--- NOTE | 2016-11-08 07:51 | DS ---
ADMIT: 08/24/2016 RM/LOC: [facility] MR#: [id number] [address] [facility] [address] [place] [id number] EDMUND MOLINA [address] [place] [address] General Discharge Summary SEX: F AGE: 26 : 1990 ADMISSION DATE: 08/24/2016 DISCHARGE DATE: 09/16/2016 INDICATION FOR HOSPITALIZATION: Edmund is a 26-year-old, single white female, admitted to residential level treatment from [facility] after detox from August 09 through August 19. She had been on probation and continued to drink. She had numerous legal problems and subsequently checked herself into treatment. Edmund's drug of choice on admission was methamphetamines, second drug of choice is alcohol. Third drug of choice is cannabis. Please see her admission H and P for the details regarding her history of present illness, past medical history, physical exam, and assessment at time of hospitalization. HOSPITAL COURSE: On admission, Edmund was admitted to our residential level treatment kelly. She was started on multivitamin and thiamine given her history of alcohol abuse and dependency. Her primary care counselor assigned was Katie Seals. Hepatitis C and HIV testing was ordered due to increased risk of exposure. Seroquel and Zoloft were ordered given her history of bipolar disorder. Melatonin was ordered for sleep disorder. Term and acute upper respiratory infection was noted and treated with Keflex. Later, Bactrim was added for UTI and Claritin for allergies. During treatment, Edmund's primary counselor assigned was Katie Seals. During treatment, she underwent individual and group therapy sessions on drug and alcohol abuse and dependency. She completed an educational series on substance abuse. She wrote feelings letters to her mother and father. She worked through a grief as her father has been gone for years. She was overall not accepting of her substance abuse problems. She completed step 1 of Alcoholics Anonymous. Issues regarding compliance were repeatedly addressed during residential level treatment program. Ultimately due to recurrent noncompliance, she was discharged due to noncompliance with treatment goals as outlined. Aftercare recommendations include completion of residential level treatment program. [place] house placement with active AA and NA meeting involvement, sponsor assignment. LABORATORY AND X-RAY DATA: During hospitalization include methamphetamine drug screen on August 24 that was negative. Hepatitis C testing on August 25 that was negative. test was negative on September 01 and UA on September 07 showed 3+ leukocytes with 57 wbc's. MEDICATION AT THE TIME OF DISCHARGE: None as she was discharged due to noncompliance and left without completing treatment. FINAL DISCHARGE DIAGNOSES: Include: 1. Stimulant use disorder, severe with history of IV use. 2. Alcohol use disorder, severe. 3. Cannabis use disorder, severe. ADMIT: 08/24/2016 RM/LOC: [facility] MR#: [id number] [address] [place] [id number] [place] [address] General Discharge Summary SEX: F AGE: 26 : 1990 4. Tobacco use disorder. 5. Bipolar disorder. 6. Exogenous obesity. 7. Dental caries. 8. Urinary tract infection. 9. Upper respiratory infection. 10.Seasonal allergies. 11.Increased risk for blood borne pathogens. PROCEDURES: Include attempts at drug and alcohol abuse dependency treatment and counseling with failure to complete therapy due to noncompliance. Please see her hospital record for the details. Carlos Manuel Nobles MD/ dolly JOB #: [id number] CC: Carlos aMnuel Nobles MD, Attending Physician NO FAMILY PHYSICIAN, Family Physician
== END 2016-09-16 13:22 | disposition home or self-care (01) | DRG 895 ==
LOC: ADTC 10:52
PROVIDERS: ADMIT Family Medicine
DX: F15.20 Other stimulant dependence, uncomplicated (principal); F31.9 Bipolar disorder, unspecified; N39.0 Urinary tract infection, site not specified; E66.09 Other obesity due to excess calories; F10.20 Alcohol dependence, uncomplicated; F12.20 Cannabis dependence, uncomplicated; F17.210 Nicotine dependence, cigarettes, uncomplicated; K02.9 Dental caries, unspecified; J06.9 Acute upper respiratory infection, unspecified; J30.2 Other seasonal allergic rhinitis; Z23 Encounter for immunization; Z72.89 Other problems related to lifestyle; Z65.2 Problems related to release from prison; Z91.19 Patient's noncompliance with other medical treatment and regimen